=== PATIENT | male | born 1960 | race African-American/Black ===

== ENCOUNTER 2016-08-07 06:12 | Observation (INO) | payer OTHER ==
[~2016-08-07] VITALS: Ht 172.7 cm; Wt 166.9 kg
[2016-08-07] MEDS ORDERED: LISI1TAB9 PO (08:27)
[2016-08-07] MEDS ORDERED: LACTATED RINGERS 1,000 ML IV SCH (09:00)
[2016-08-07] MEDS ORDERED: EPINEPHRINE 1:1000 1 MG/ML AMP ONE (09:31)
[2016-08-07] MEDS ORDERED: BUPIVACAINE HCL/EPINEPHRINE 0.5%/0.0005 30ML ONE (09:32)
[2016-08-07] MEDS ORDERED: CEFAZOLIN 1000MG PREMIX 50 ML IV SCH (10:30)
[2016-08-07] MEDS ORDERED: MIDAZOLAM HCL 2 MG/2 ML VIAL ONE (10:31)
[2016-08-07] MEDS ORDERED: FENTANYL CITRATE/PF 50MCG/ML 2ML VIAL ONE (10:32)
[2016-08-07] MEDS ORDERED: ROCURONIUM BROMIDE 10MG/ML VIAL 5ML IV ONE (10:33)
[2016-08-07] MEDS ORDERED: LIDOCAINE HCL 1% 20ML VIAL (Pyxis) INJ ONE (10:33)
[2016-08-07] MEDS ORDERED: SUCCINYLCHOLINE CHLORIDE 200MG/10ML VIAL IV ONE (10:33)
[2016-08-07] MEDS ORDERED: PROPOFOL 200MG/20ML VIAL IV ONE (10:33)
[2016-08-07] MEDS ORDERED: CEFAZOLIN SODIUM 1000MG/VIAL ONE (10:33)
[2016-08-07] MEDS ORDERED: BUPIVACAINE/EPINEPH/PF 0.25%/0.0005 10ML ONE (11:01)
[2016-08-07] MEDS ORDERED: DEXAMETHASONE 4MG/ML 1ML VIAL ONE (11:13)
[2016-08-07] MEDS ORDERED: METOCLOPRAMIDE HCL 10MG/2ML VIAL ONE (11:14)
[2016-08-07] MEDS ORDERED: ONDANSETRON HCL 4MG/2ML VIAL ONE (11:14)
[2016-08-07] MEDS ORDERED: PHENYLEPHRINE HCL 10 MG/ML 1ML (IV VIAL) IV ONE (11:30)
[2016-08-07] MEDS ORDERED: SODIUM CHLORIDE 0.9% 1,000 ML IV SCH (11:57)
[2016-08-07] MEDS ORDERED: HYDROMORPHONE HCL/PF 2MG/ML CPJ IV PRN (12:00)
[2016-08-07] MEDS ORDERED: ONDANSETRON HCL 4MG/2ML VIAL IV PRN (12:00)
[2016-08-07] MEDS ORDERED: GLYCOPYRROLATE 0.2 MG/ML 2ML VIAL ONE (12:08)
[2016-08-07] MEDS ORDERED: NEOSTIGMINE METHYLSULFATE 1MG/ML 10 ML VIAL ONE (12:08)
[2016-08-07] MEDS ORDERED: HYDROMORPHONE PCA 10MG/50ML IV PRN (12:45)
[2016-08-07] MEDS ORDERED: NALOXONE INJ IV PRN (12:45)
[2016-08-07] MEDS ORDERED: ONDANSETRON INJ IV PRN (12:45)
[2016-08-07] MEDS ORDERED: HYDROCODONE/ACETAMINOPHEN 10/325MG TABLET PO PRN (16:00)
[2016-08-07 20:00] VITALS: BP 97/59
[2016-08-08] VITALS: BP 113/85
[2016-08-08 08:00] VITALS: BP 127/100
[2016-08-08 08:01] VITALS: BP 127/100
[2016-08-08] MEDS ORDERED: LISINOPRIL 10MG TABLET PO SCH (09:00)
== END 2016-08-08 09:15 | disposition home or self-care (01) ==
LOC: OR 06:12 → 7WST 18:13 → INTOOBSV 18:13
PROVIDERS: ADMIT Orthopaedic Surgery Sports Medicine; ATTEND Orthopaedic Surgery Sports Medicine
DX: S46.012A Strain of muscle(s) and tendon(s) of the rotator cuff of left shoulder, initial encounter (principal); S43.432A Superior glenoid labrum lesion of left shoulder, initial encounter; E66.01 Morbid (severe) obesity due to excess calories; I10 Essential (primary) hypertension; Y99.0 Civilian activity done for income or pay; Y93.9 Activity, unspecified; Y92.9 Unspecified place or not applicable; Y99.9 Unspecified external cause status
CPT/HCPCS: 29823; 29826; 29827; 88304; 88311; C1713; G0378; J0171; J0330; J0690; J1100; J1170; J2250; J2370; J2405; J2710; J2765; J3010; J3490; J7030; J7120; J2704